=== PATIENT | female | born 1980 | race African-American/Black ===

== ENCOUNTER 2024-02-19 17:08 | Inpatient (IN) | payer OTHER, SELFPAY ==
[2024-02-19 17:53] VITALS: BP 136/100; PULSE 82; RESP 16; TEMP 36.3; O2SAT 93
[2024-02-19 18:08] VITALS: BMI 21.6
[2024-02-19 19:11] VITALS: BP 145/98; PULSE 84; RESP 18; TEMP 36.4; O2SAT 99
--- NOTE | 2024-02-19 19:13 | PC.NURSE ---
Pt arrived to unit at 1750 on a CV from [facility]. Pt cooperative with safety/skin check and VS check. Admission orders obtained by covering provider Dr. Sher. Pt oriented to unit, provided with toiletries, fluids, and dinner. Pt noted to have brought medications from home, which were inventoried and sent to pharmacy for storage. Medication reconciliation completed with [facility] and [facility]. Covering provider Dr. Sher made aware that medication reconciliation completed. Admission to be completed by oncoming assigned nurse.
[2024-02-19 19:36] LABS: Alanine Aminotransferase 19 U/L (0-31); Alkaline Phosphatase 53 U/L (39-117); Anion Gap 12 (12-20); Aspartate Amino Transferase 26 U/L (5-31); Bilirubin Total 0.6 mg/dL (0.0-1.0); Blood Urea Nitrogen 8 mg/dL (9-16); Calcium 9.7 mg/dL (8.4-10.2); Carbon Dioxide 28 mmol/L (22-29); Chloride 104 mmol/L (96-108); Creatinine Clr Calc Pharmacy 78.3; Estimated Glomerular Filt Rate > 60; Glucose Random 113 mg/dL (60-115); Potassium 4.1 mmol/L (3.3-5.1); Sodium 140 mmol/L (135-145); Total Protein 7.7 g/dL (6.5-8.0)
[2024-02-19 20:00] VITALS: BP 139/94; PULSE 69; RESP 16; TEMP 36.5; O2SAT 100
--- NOTE | 2024-02-19 20:31 | PHA.MEDREC ---
Pharmacy Consult ? Medication Reconciliation Pharmacy has reviewed the medication reconciliation completed by nursing.
[2024-02-19] MEDS: traMADoL HCL 50 MG TABLET PO (23:45)
[2024-02-19] MEDS: Baclofen 10 MG TABLET PO (23:45)
[2024-02-19] MEDS: QUEtiapine Fumarate 25 MG TABLET PO (23:45)
[2024-02-19 23:46] VITALS: BP 139/94
[2024-02-19] MEDS: traZODone HCL 50 MG TABLET PO (23:46)
[2024-02-19] MEDS: Prazosin HCL 1 MG CAPSULE PO (23:46)
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
[2024-02-20 08:00] VITALS: BP 123/85; PULSE 88; RESP 16; TEMP 36.4; O2SAT 98
[2024-02-20 08:23] LABS: Estimated Average Glucose 100 mg/dL; Hemoglobin A1C 118.3359 umol/L; Hemoglobin A1c % 5.1 % (<6.0); Total Hemoglobin (HGBA1C) 3624.3447 umol/L
[2024-02-20] MEDS: Omeprazole 20 MG CAPSULE.DR PO (08:30)
[2024-02-20] MEDS: Apixaban 2.5 MG TABLET PO ×2 (08:31→20:34)
[2024-02-20] MEDS: Baclofen 10 MG TABLET PO ×3 (08:33→20:34)
[2024-02-20] MEDS: Prazosin HCL 1 MG CAPSULE PO ×2 (08:33→20:34)
[2024-02-20] MEDS: amLODIPine Besylate 5 MG TABLET PO (08:33)
[2024-02-20] MEDS: Gabapentin 600 MG TABLET PO ×2 (08:33→20:34)
[2024-02-20] MEDS: QUEtiapine Fumarate 25 MG TABLET PO ×2 (08:34→20:34)
[2024-02-20 08:37] LABS: Cholesterol 176 mg/dL (<200); HDL Cholesterol 60 mg/dL (>40); LDL Cholesterol Calculated 101 mg/dL (<100); Magnesium 1.7 mg/dL (1.6-2.6); Triglycerides 78 mg/dL (<150)
[2024-02-20 09:00] LABS: TSH reflex Free T4 1.67 uIU/mL (0.32-4.0)
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
[2024-02-20 11:50] VITALS: BP 133/77; PULSE 74; RESP 14; TEMP 36.6; O2SAT 98
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
[2024-02-20 15:06] VITALS: BP 154/101
[2024-02-20] MEDS: cloNIDine HCL 0.1 MG TABLET PO (15:06)
[2024-02-20 20:30] VITALS: BP 106/69; PULSE 74; RESP 18; TEMP 37.1; O2SAT 98
[2024-02-20] MEDS: Lithium Carbonate ER 300 MG TABLET.ER 600 MG PO (20:34)
[2024-02-21] MEDS: Omeprazole 20 MG CAPSULE.DR PO (07:26)
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
[2024-02-21 10:07] VITALS: BP 117/84
[2024-02-21] MEDS: amLODIPine Besylate 5 MG TABLET PO (10:07)
[2024-02-21] MEDS: Baclofen 10 MG TABLET PO ×3 (10:07→20:38)
[2024-02-21] MEDS: QUEtiapine Fumarate 25 MG TABLET PO ×2 (10:07→21:53)
[2024-02-21] MEDS: Prazosin HCL 1 MG CAPSULE PO ×2 (10:07→21:53)
[2024-02-21] MEDS: Gabapentin 600 MG TABLET PO ×2 (10:07→21:53)
[2024-02-21] MEDS: Apixaban 2.5 MG TABLET PO ×2 (10:07→21:53)
[2024-02-21] MEDS: hydrOXYzine HCL 25 MG TABLET PO (15:03)
[2024-02-21] MEDS: traMADoL HCL 50 MG TABLET PO ×2 (16:03→21:52)
[2024-02-21 19:49] VITALS: BP 116/65; PULSE 77; RESP 15; TEMP 36.6; O2SAT 99
[2024-02-21] MEDS: cloNIDine HCL 0.1 MG TABLET PO (20:39)
[2024-02-21] MEDS: Lithium Carbonate ER 300 MG TABLET.ER 600 MG PO (21:52)
[2024-02-22] MEDS: traZODone HCL 50 MG TABLET PO (02:16)
[2024-02-22] MEDS: hydrOXYzine HCL 25 MG TABLET PO (02:16)
[2024-02-22] MEDS: Omeprazole 20 MG CAPSULE.DR PO (07:03)
[2024-02-22 08:08] VITALS: BP 129/82; PULSE 74; RESP 16; TEMP 36.3; O2SAT 99
[2024-02-22] MEDS: Apixaban 2.5 MG TABLET PO ×2 (08:16→20:18)
[2024-02-22] MEDS: QUEtiapine Fumarate 25 MG TABLET PO ×2 (08:16→20:18)
[2024-02-22] MEDS: Prazosin HCL 1 MG CAPSULE PO ×2 (08:16→20:19)
[2024-02-22] MEDS: amLODIPine Besylate 5 MG TABLET PO (08:16)
[2024-02-22] MEDS: Baclofen 10 MG TABLET PO ×3 (08:16→20:19)
[2024-02-22] MEDS: Gabapentin 600 MG TABLET PO ×2 (08:16→20:19)
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
[2024-02-22] MEDS: ALPRAZolam 0.5 MG TABLET PO (16:06)
[2024-02-22 16:07] VITALS: BP 126/78
[2024-02-22] MEDS: cloNIDine HCL 0.1 MG TABLET PO (16:07)
[2024-02-22 20:00] VITALS: BP 127/74; PULSE 74; TEMP 36.4; O2SAT 96
[2024-02-22] MEDS: Lithium Carbonate ER 300 MG TABLET.ER 600 MG PO (20:18)
[2024-02-22] MEDS: traMADoL HCL 50 MG TABLET PO (20:18)
[2024-02-22 20:19] VITALS: BP 127/74
[2024-02-23] MEDS: traMADoL HCL 50 MG TABLET PO ×3 (04:18→21:21)
[2024-02-23] MEDS: Omeprazole 20 MG CAPSULE.DR PO (06:32)
[2024-02-23 08:00] VITALS: BP 117/73; PULSE 75; RESP 16; TEMP 36.3; O2SAT 97
[2024-02-23] MEDS: QUEtiapine Fumarate 25 MG TABLET PO (08:35)
[2024-02-23] MEDS: Prazosin HCL 1 MG CAPSULE PO ×2 (08:35→21:19)
[2024-02-23] MEDS: amLODIPine Besylate 5 MG TABLET PO (08:35)
[2024-02-23] MEDS: Apixaban 2.5 MG TABLET PO ×2 (08:35→21:16)
[2024-02-23] MEDS: Gabapentin 600 MG TABLET PO ×2 (08:35→21:24)
[2024-02-23] MEDS: Baclofen 10 MG TABLET PO (08:35)
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
[2024-02-23] MEDS: hydrOXYzine HCL 25 MG TABLET PO ×2 (08:54→16:45)
[2024-02-23] MEDS: ALPRAZolam 0.5 MG TABLET PO (14:39)
[2024-02-23 20:00] VITALS: BP 121/73; PULSE 69; RESP 16; TEMP 36.3; O2SAT 100
[2024-02-23] MEDS: Lithium Carbonate ER 300 MG TABLET.ER 600 MG PO (21:16)
[2024-02-23] MEDS: Baclofen 10 MG TABLET 5 MG PO (21:17)
[2024-02-23] MEDS: traZODone HCL 50 MG TABLET PO (21:20)
[2024-02-24] MEDS: ALPRAZolam 0.5 MG TABLET PO (01:29)
[2024-02-24] MEDS: traZODone HCL 50 MG TABLET PO ×2 (01:30→22:30)
[2024-02-24] MEDS: Omeprazole 20 MG CAPSULE.DR PO (06:51)
[2024-02-24 08:00] VITALS: BP 112/63; PULSE 71; RESP 16; TEMP 36.2; O2SAT 99
[2024-02-24] MEDS: Apixaban 2.5 MG TABLET PO ×2 (08:29→20:17)
[2024-02-24] MEDS: traMADoL HCL 50 MG TABLET PO ×3 (08:29→20:17)
[2024-02-24] MEDS: amLODIPine Besylate 5 MG TABLET PO (08:29)
[2024-02-24] MEDS: Gabapentin 600 MG TABLET PO ×2 (08:29→20:18)
[2024-02-24] MEDS: Baclofen 10 MG TABLET 5 MG PO ×2 (08:30→20:18)
[2024-02-24] MEDS: Prazosin HCL 1 MG CAPSULE PO ×2 (08:31→22:28)
[2024-02-24 12:13] VITALS: BP 103/66
[2024-02-24] MEDS: cloNIDine HCL 0.1 MG TABLET PO ×2 (12:13→22:27)
[2024-02-24] MEDS: Acetaminophen 325 MG TABLET 650 MG PO ×2 (15:01→21:01)
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
[2024-02-24 20:00] VITALS: BP 109/66; PULSE 72; RESP 16; TEMP 36.4; O2SAT 99
[2024-02-24] MEDS: Lithium Carbonate ER 300 MG TABLET.ER 600 MG PO (20:18)
[2024-02-24 22:27] VITALS: BP 109/66
[2024-02-24 22:28] VITALS: BP 109/66
[2024-02-24] MEDS: hydrOXYzine HCL 25 MG TABLET PO (22:28)
[2024-02-24] MEDS: Melatonin 3 MG TABLET 9 MG PO (22:31)
[2024-02-25 08:00] VITALS: BP 116/80; PULSE 74; RESP 18; TEMP 36.9
[2024-02-25 08:41] LABS: Lithium 0.68 mmol/L (0.60-1.20)
[2024-02-25 08:53] LABS: Blood Urea Nitrogen 11 mg/dL (9-16); Creatinine Clr Calc Pharmacy 90.2; Estimated Glomerular Filt Rate > 60
[2024-02-25] MEDS: amLODIPine Besylate 5 MG TABLET PO (09:03)
[2024-02-25] MEDS: Omeprazole 20 MG CAPSULE.DR PO (09:03)
[2024-02-25] MEDS: cloNIDine HCL 0.1 MG TABLET PO ×2 (09:03→18:20)
[2024-02-25] MEDS: Gabapentin 600 MG TABLET PO ×2 (09:03→21:03)
[2024-02-25] MEDS: Prazosin HCL 1 MG CAPSULE PO ×2 (09:04→21:03)
[2024-02-25] MEDS: Apixaban 2.5 MG TABLET PO ×2 (09:04→21:03)
[2024-02-25] MEDS: Acetaminophen 325 MG TABLET 650 MG PO ×2 (09:04→18:20)
[2024-02-25] MEDS: Baclofen 10 MG TABLET 5 MG PO ×2 (09:04→21:03)
[2024-02-25 09:09] LABS: TSH reflex Free T4 2.69 uIU/mL (0.32-4.0)
[2024-02-25] MEDS: hydrOXYzine HCL 25 MG TABLET PO (10:41)
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
[2024-02-25] MEDS: ALPRAZolam 0.5 MG TABLET PO (14:39)
[2024-02-25] MEDS: traMADoL HCL 50 MG TABLET PO ×2 (14:39→21:02)
[2024-02-25 18:20] VITALS: BP 125/76
[2024-02-25 20:00] VITALS: BP 109/58; PULSE 77; TEMP 36.4; O2SAT 98
[2024-02-25] MEDS: traZODone HCL 50 MG TABLET PO (21:03)
[2024-02-25] MEDS: Lithium Carbonate ER 300 MG TABLET.ER 600 MG PO (21:03)
[2024-02-26] MEDS: traMADoL HCL 50 MG TABLET PO ×2 (06:28→15:24)
[2024-02-26] MEDS: Omeprazole 20 MG CAPSULE.DR PO (07:44)
[2024-02-26 08:34] VITALS: BP 98/64; PULSE 69; RESP 18; TEMP 36.8; O2SAT 100
[2024-02-26] MEDS: Gabapentin 600 MG TABLET PO ×2 (08:52→20:46)
[2024-02-26] MEDS: Prazosin HCL 1 MG CAPSULE PO ×2 (08:52→20:46)
[2024-02-26] MEDS: Apixaban 2.5 MG TABLET PO ×2 (08:52→20:46)
[2024-02-26] MEDS: amLODIPine Besylate 5 MG TABLET PO (08:52)
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
[2024-02-26 15:24] VITALS: BP 133/91
[2024-02-26] MEDS: cloNIDine HCL 0.1 MG TABLET PO (15:24)
[2024-02-26] MEDS: ALPRAZolam 0.5 MG TABLET PO (15:25)
[2024-02-26 19:45] VITALS: BP 123/72; PULSE 70; TEMP 36.4; O2SAT 99
[2024-02-26] MEDS: Lithium Carbonate ER 300 MG TABLET.ER 600 MG PO (20:46)
[2024-02-26] MEDS: Acetaminophen 325 MG TABLET 650 MG PO (21:21)
[2024-02-26] MEDS: hydrOXYzine HCL 25 MG TABLET PO (22:34)
[2024-02-26] MEDS: traZODone HCL 50 MG TABLET PO (22:35)
[2024-02-27 08:00] VITALS: BP 138/84; PULSE 80; TEMP 36.6; O2SAT 99
[2024-02-27 08:51] VITALS: BP 138/84
[2024-02-27] MEDS: Prazosin HCL 1 MG CAPSULE PO ×2 (08:51→20:53)
[2024-02-27] MEDS: Apixaban 2.5 MG TABLET PO ×2 (08:52→20:53)
[2024-02-27] MEDS: Omeprazole 20 MG CAPSULE.DR PO (08:52)
[2024-02-27] MEDS: Gabapentin 600 MG TABLET PO ×2 (08:52→20:51)
[2024-02-27 08:53] VITALS: BP 138/84
[2024-02-27] MEDS: amLODIPine Besylate 5 MG TABLET PO (08:53)
[2024-02-27] MEDS: traMADoL HCL 50 MG TABLET PO ×2 (14:42→22:00)
[2024-02-27] MEDS: ALPRAZolam 0.5 MG TABLET PO ×2 (14:42→18:04)
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
[2024-02-27] MEDS: risperiDONE 0.5 MG TABLET PO (18:00)
[2024-02-27 19:40] VITALS: BP 106/74; PULSE 85; TEMP 36.6; O2SAT 100
[2024-02-27] MEDS: Acetaminophen 325 MG TABLET 650 MG PO (20:51)
[2024-02-27] MEDS: Lithium Carbonate ER 300 MG TABLET.ER 600 MG PO (20:51)
[2024-02-27 21:58] VITALS: BP 136/83
[2024-02-27] MEDS: cloNIDine HCL 0.1 MG TABLET PO (21:58)
[2024-02-27] MEDS: traZODone HCL 50 MG TABLET PO (21:58)
[2024-02-28 07:57] VITALS: BP 116/78; PULSE 81; RESP 16; TEMP 36.4; O2SAT 99
[2024-02-28] MEDS: Gabapentin 600 MG TABLET PO ×2 (08:15→20:53)
[2024-02-28] MEDS: Omeprazole 20 MG CAPSULE.DR PO (08:16)
[2024-02-28] MEDS: amLODIPine Besylate 5 MG TABLET PO (08:16)
[2024-02-28] MEDS: Apixaban 2.5 MG TABLET PO ×2 (08:16→20:54)
[2024-02-28] MEDS: risperiDONE 0.5 MG TABLET PO ×2 (08:16→14:39)
[2024-02-28 09:07] VITALS: BP 116/78
[2024-02-28] MEDS: Prazosin HCL 1 MG CAPSULE PO ×2 (09:07→20:51)
[2024-02-28 12:09] VITALS: BP 117/82
[2024-02-28] MEDS: cloNIDine HCL 0.1 MG TABLET PO ×2 (12:09→17:29)
[2024-02-28] MEDS: traMADoL HCL 50 MG TABLET PO (12:28)
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
[2024-02-28 17:29] VITALS: BP 123/73; PULSE 88
[2024-02-28 20:00] VITALS: BP 147/82; PULSE 90; RESP 16; TEMP 37; O2SAT 100
[2024-02-28 20:51] VITALS: BP 147/82
[2024-02-28] MEDS: Lithium Carbonate ER 300 MG TABLET.ER 600 MG PO (20:54)
[2024-02-28] MEDS: traZODone HCL 50 MG TABLET PO (22:57)
[2024-02-28] MEDS: hydrOXYzine HCL 25 MG TABLET PO (22:57)
[2024-02-29 07:00] VITALS: BMI 21.9
[2024-02-29 08:23] VITALS: BP 135/86; PULSE 80; RESP 18; TEMP 36.4; O2SAT 98
[2024-02-29] MEDS: Gabapentin 600 MG TABLET PO ×2 (08:55→21:03)
[2024-02-29] MEDS: Omeprazole 20 MG CAPSULE.DR PO (08:55)
[2024-02-29] MEDS: Prazosin HCL 1 MG CAPSULE PO ×2 (08:55→23:11)
[2024-02-29] MEDS: risperiDONE 0.5 MG TABLET PO ×2 (08:55→13:18)
[2024-02-29] MEDS: Apixaban 2.5 MG TABLET PO ×2 (08:55→21:05)
[2024-02-29] MEDS: amLODIPine Besylate 5 MG TABLET PO (08:55)
[2024-02-29] MEDS: Acetaminophen 325 MG TABLET 650 MG PO ×2 (11:01→18:55)
[2024-02-29] MEDS: traMADoL HCL 50 MG TABLET PO ×2 (11:01→18:56)
[2024-02-29] MEDS: hydrOXYzine HCL 25 MG TABLET PO ×2 (13:20→21:26)
[2024-02-29 15:56] VITALS: BP 154/90
[2024-02-29] MEDS: cloNIDine HCL 0.1 MG TABLET PO ×2 (15:56→21:19)
[2024-02-29 20:00] VITALS: BP 120/82; PULSE 78; TEMP 36.6; O2SAT 98
[2024-02-29] MEDS: Lithium Carbonate ER 300 MG TABLET.ER 600 MG PO (21:04)
[2024-02-29 21:19] VITALS: BP 120/82
[2024-02-29 23:05] VITALS: BP 113/76; PULSE 80
[2024-02-29 23:11] VITALS: BP 113/76
[2024-02-29] MEDS: traZODone HCL 50 MG TABLET PO (23:11)
[2024-03-01] MEDS: hydrOXYzine HCL 25 MG TABLET PO ×3 (04:51→17:35)
[2024-03-01] MEDS: Omeprazole 20 MG CAPSULE.DR PO (07:10)
[2024-03-01 08:00] VITALS: BP 129/92; PULSE 83; RESP 16; TEMP 36.4; O2SAT 96
[2024-03-01] MEDS: Prazosin HCL 1 MG CAPSULE PO ×2 (08:58→23:03)
[2024-03-01] MEDS: Apixaban 2.5 MG TABLET PO ×2 (08:58→20:33)
[2024-03-01] MEDS: Gabapentin 600 MG TABLET PO ×2 (08:58→20:33)
[2024-03-01] MEDS: risperiDONE 0.5 MG TABLET PO ×2 (08:58→13:20)
[2024-03-01] MEDS: amLODIPine Besylate 5 MG TABLET PO (08:58)
[2024-03-01] MEDS: traMADoL HCL 50 MG TABLET PO ×2 (09:02→18:01)
[2024-03-01] MEDS: cloNIDine HCL 0.1 MG TABLET PO ×4 (09:02→23:03)
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
[2024-03-01] MEDS: Lidocaine 4 % Patch ADH..PATCH 1 PATCH TRANSDERMA ×2 (13:25→18:01)
[2024-03-01 13:29] VITALS: BP 111/74
[2024-03-01 17:35] VITALS: BP 117/70
[2024-03-01] MEDS: ALPRAZolam 0.5 MG TABLET PO (18:01)
[2024-03-01 20:00] VITALS: BP 109/56; PULSE 80; RESP 15; TEMP 36.5; O2SAT 100
[2024-03-01] MEDS: Lithium Carbonate ER 300 MG TABLET.ER 600 MG PO (20:32)
[2024-03-01] MEDS: traZODone HCL 50 MG TABLET PO (23:03)
[2024-03-01] MEDS: Melatonin 3 MG TABLET 9 MG PO (23:04)
[2024-03-02] MEDS: Omeprazole 20 MG CAPSULE.DR PO (06:55)
[2024-03-02 08:00] VITALS: BP 106/74; PULSE 99; RESP 18; TEMP 36.4; O2SAT 100
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
[2024-03-02] MEDS: risperiDONE 0.5 MG TABLET PO ×2 (09:09→13:38)
[2024-03-02] MEDS: amLODIPine Besylate 5 MG TABLET PO (09:09)
[2024-03-02] MEDS: Gabapentin 600 MG TABLET PO ×2 (09:09→20:21)
[2024-03-02] MEDS: Prazosin HCL 1 MG CAPSULE PO ×2 (09:09→22:22)
[2024-03-02] MEDS: Apixaban 2.5 MG TABLET PO ×2 (09:09→20:21)
[2024-03-02] MEDS: Lidocaine 4 % Patch ADH..PATCH 1 PATCH TRANSDERMA (09:10)
[2024-03-02] MEDS: ALPRAZolam 0.5 MG TABLET PO (12:02)
[2024-03-02] MEDS: traMADoL HCL 50 MG TABLET PO (12:03)
[2024-03-02] MEDS: Acamprosate Calcium 333 MG TABLET.DR PO ×2 (14:13→20:21)
[2024-03-02 20:00] VITALS: BP 137/81; PULSE 83; RESP 15; TEMP 36.9; O2SAT 99
[2024-03-02] MEDS: Lithium Carbonate ER 300 MG TABLET.ER 600 MG PO (20:21)
[2024-03-02] MEDS: traZODone HCL 50 MG TABLET PO ×2 (22:22→22:23)
[2024-03-02] MEDS: Melatonin 3 MG TABLET 9 MG PO (22:22)
[2024-03-03] MEDS: Omeprazole 20 MG CAPSULE.DR PO (07:09)
[2024-03-03 08:00] VITALS: BP 141/83; PULSE 106; RESP 18; TEMP 36.4; O2SAT 99
[2024-03-03] MEDS: Apixaban 2.5 MG TABLET PO ×2 (08:35→20:21)
[2024-03-03] MEDS: amLODIPine Besylate 5 MG TABLET PO (08:35)
[2024-03-03] MEDS: Prazosin HCL 1 MG CAPSULE PO ×2 (08:35→20:20)
[2024-03-03] MEDS: Acamprosate Calcium 333 MG TABLET.DR PO ×3 (08:35→20:19)
[2024-03-03] MEDS: Gabapentin 600 MG TABLET PO ×2 (08:35→20:21)
[2024-03-03] MEDS: traMADoL HCL 50 MG TABLET PO ×3 (08:36→23:10)
[2024-03-03] MEDS: risperiDONE 0.5 MG TABLET PO ×2 (08:36→13:47)
[2024-03-03] MEDS: Lidocaine 4 % Patch ADH..PATCH 1 PATCH TRANSDERMA (08:38)
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
[2024-03-03 19:52] VITALS: BP 123/80; PULSE 98; RESP 18; TEMP 37.1; O2SAT 99
[2024-03-03] MEDS: Lithium Carbonate ER 300 MG TABLET.ER 600 MG PO (20:21)
[2024-03-03] MEDS: ALPRAZolam 0.5 MG TABLET PO (20:37)
[2024-03-03] MEDS: Melatonin 3 MG TABLET 9 MG PO (23:11)
[2024-03-03] MEDS: traZODone HCL 50 MG TABLET PO (23:12)
[2024-03-03] MEDS: hydrOXYzine HCL 25 MG TABLET PO (23:12)
[2024-03-04] MEDS: Omeprazole 20 MG CAPSULE.DR PO (06:41)
[2024-03-04] MEDS: ALPRAZolam 0.5 MG TABLET PO ×2 (07:06→12:26)
[2024-03-04 08:00] VITALS: BP 123/72; PULSE 88; RESP 18; TEMP 36.2; O2SAT 100
[2024-03-04] MEDS: Acetaminophen 325 MG TABLET 650 MG PO (08:34)
[2024-03-04] MEDS: Gabapentin 600 MG TABLET PO (08:35)
[2024-03-04] MEDS: Acamprosate Calcium 333 MG TABLET.DR PO (08:35)
[2024-03-04] MEDS: risperiDONE 0.5 MG TABLET PO (08:35)
[2024-03-04] MEDS: hydrOXYzine HCL 25 MG TABLET PO (08:35)
[2024-03-04] MEDS: Apixaban 2.5 MG TABLET PO (08:35)
[2024-03-04] MEDS: Prazosin HCL 1 MG CAPSULE PO (08:35)
[2024-03-04] MEDS: amLODIPine Besylate 5 MG TABLET PO (08:35)
[2024-03-04] MEDS: traMADoL HCL 50 MG TABLET PO (08:35)
[2024-03-04] MEDS: Lidocaine 4 % Patch ADH..PATCH 1 PATCH TRANSDERMA (08:38)
[2024-03-04] MEDS: Cyclobenzaprine HCl 10 MG TABLET PO (09:44)
[2024-03-04 09:52] VITALS: BP 140/74
[2024-03-04] MEDS: cloNIDine HCL 0.1 MG TABLET PO (09:52)
--- NOTE | 2024-03-04 11:42 | P.DS_ITS ---
DS: Providers Provider Date of Service: 03/04/24 Date of admission: 02/19/24 17:08 Date of discharge: 03/04/24 Primary care physician: Unknown Physician Consults: 02/19/24 17:56 Consult to Hospitalist Routine Comment: Consulting Provider: [facility] Hospitalists Reason For Exam: admission physical DS: Diagnosis Discharge Diagnosis (1) Bipolar I disorder: Status: Acute (2) Alcohol use disorder: Status: Acute (3) PTSD (post-traumatic stress disorder): Status: Acute DS: Medications Discharge Medications Home Medications: Previous Rx's ?Medication ?Instructions ?Recorded acamprosate 333 mg tablet,delayed 333 mg PO TID 30 days #90 tabs 03/04/24 release alprazolam 0.5 mg tablet 0.5 mg PO TID PRN Anxiety 30 days 03/04/24 #30 tabs amlodipine 5 mg tablet 5 mg PO DAILY 30 days #30 tabs 03/04/24 apixaban 2.5 mg tablet (Eliquis) 2.5 mg PO BID 30 days #60 tabs 03/04/24 clonidine HCl 0.1 mg tablet 0.1 mg PO Q4H PRN anxiety 30 days 03/04/24 #90 tabs cyclobenzaprine 10 mg tablet 10 mg PO TID PRN muscle 03/04/24 spasm/tightness 30 days #90 tabs gabapentin 600 mg tablet 600 mg PO BID 30 days #60 tabs 03/04/24 hydroxyzine HCl 25 mg tablet 25 mg PO Q6H PRN Anxiety 30 days 03/04/24 #90 tabs lidocaine 4 % topical patch 1 patch transdermal DAILY PRN 03/04/24 (Lidocaine Pain Relief) lower back pain 30 days #30 ea lithium carbonate 300 mg 600 mg (2 x 300 mg) PO BEDTIME 30 03/04/24 tablet,extended release days #60 tabs melatonin 10 mg tablet 10 mg PO BEDTIME PRN sleep 30 days 03/04/24 #30 tabs pantoprazole 40 mg tablet,delayed 40 mg PO DAILY@0630 30 days #30 03/04/24 release (Protonix) tabs prazosin 1 mg capsule 1 mg PO BID 30 days #60 caps 03/04/24 risperidone 0.5 mg tablet 0.5 mg PO BID@0900,1400 30 days 03/04/24 #60 tabs tramadol 50 mg tablet 50 mg PO Q6H PRN Pain, Moderate 30 03/04/24 days #30 tabs trazodone 50 mg tablet 50 mg PO BEDTIME 30 days #30 tabs 03/04/24 DS: Summary Time Spent with Patient Time attestation: Total time managing care of this patient today ____ minutes. Discharge Plan Discharge Anticipated Discharge Date/Time: 03/04/24 12:42 Patient Disposition: [facility] Discharge Diagnosis: bipolar I disorder, recurrent, moderate, most recent episode depressed, in full remission Referrals: [facility] [Other] - 1 Week (Programs offer adults in [facility] with substance use disorders and/or co- occurring substance use and mental health diagnoses access to a continuum of housing and support options, including a dedicated full-time bioinformatics support specialist. Please call the provided number to check to see about availability for entering the program ) [facility] [Other] - 1 Week (The confidential [facility] operates Monday-Monday, 9AM to 5PM. Helpline: [phone], Office: [phone] Services include a confidential helpline, counseling, safety planning, support groups, legal and immigration assistance, referrals, and assistance with housing and economic issues. ) [facility] [Other] - 1 Week ([facility] helps to find emergency detention, get 1:1 advocacy, build personal safety plan and join support groups ) [facility] Int[facility] [Other] - 03/07/24 11:00 am (Your appointment is with Kristine Faye and is in person ) [facility]Medication Provider [Other] - 03/27/24 1:00 pm (Your appointment is with Raymond Krishnamurthy and is in person) Angela Garcia MD [Physician] - 03/29/24 2:00 pm (In office appointment ) Discharge Medications: New acamprosate 333 mg Tablet,Delayed Release (Dr/Ec) 333 mg PO TID 30 Days Qty: 90 1RF cyclobenzaprine 10 mg Tablet 10 mg PO TID PRN (Reason: muscle spasm/tightness) 30 Days Qty: 90 1RF clonidine HCl 0.1 mg Tablet 0.1 mg PO Q4H PRN (Reason: anxiety) 30 Days Qty: 90 1RF Protocol: Hold for SBP< HOLD for SBP < : 90 gabapentin 600 mg Tablet 600 mg PO BID 30 Days Qty: 60 1RF hydroxyzine HCl 25 mg Tablet 25 mg PO Q6H PRN (Reason: Anxiety) 30 Days Qty: 90 1RF lithium carbonate 300 mg Tablet Extended Release 600 mg PO BEDTIME 30 Days Qty: 60 1RF risperidone 0.5 mg Tablet 0.5 mg PO BID@0900,1400 30 Days Qty: 60 0RF trazodone 50 mg Tablet 50 mg PO BEDTIME 30 Days Qty: 30 1RF melatonin 10 mg tablet 10 mg PO BEDTIME PRN (Reason: sleep) 30 Days Qty: 30 0RF lidocaine [Lidocaine Pain Relief] 4 % Adhesive Patch,Medicated 1 patch transdermal DAILY PRN (Reason: lower back pain) 30 Days Qty: 30 1RF Protocol: Apply to: Apply to: lower back Rx Instructions: apply to lower back daily as needed Continued amlodipine 5 mg Tablet 5 mg PO DAILY 30 Days Qty: 30 0RF tramadol 50 mg Tablet 50 mg PO Q6H PRN (Reason: Pain, Moderate) 30 Days Qty: 30 0RF alprazolam 0.5 mg Tablet 0.5 mg PO TID PRN (Reason: Anxiety) 30 Days Qty: 30 0RF pantoprazole [Protonix] 40 mg Tablet,Delayed Release (Dr/Ec) 40 mg PO DAILY@0630 30 Days Qty: 30 0RF Eliquis 2.5 mg Tablet 2.5 mg PO BID 30 Days Qty: 60 0RF Changed prazosin 1 mg Capsule 1 mg PO BID 30 Days Qty: 60 1RF Discontinued quetiapine [Seroquel XR] 50 mg Tablet Extended Release 24 Hr 50 mg PO BEDTIME baclofen 10 mg Tablet 10 mg PO TID PRN (Reason: Pain) Patient Comments: 30 day supply last filled 01/24/24. gabapentin 300 mg Tablet 600 mg PO BID Rx Instructions: 30 day supply last filled 01/19/24 melatonin 3 mg Tablet 9 mg PO BEDTIME PRN (Reason: Insomnia) Patient Comments: 30 day supply last filled 01/21/24 Rx Instructions: take 3 tablets at bedtime as needed Discharge Orders: Discharge Order (Routine); Ordered 03/04/24 Ordered By: Zoran Sher Diet: Regular diet Activity on Discharge: As tolerated Stand Alone Forms: Patient Portal Discharge page Print Language: Polish Care Plan Goals: Maintain mood and safe behaviors Take medications as prescribed Continue to pursue sobriety Practice coping skills Continue with outpatient providers and reach out to them as needed Health Concerns: Mood stability and behaviors Sobriety Plan of Treatment: Follow up with your PCP, psychiatric provider and other outpatient providers regarding above concerns Take medications as prescribed Assessment: Risk assessment at time of discharge:? Patient was interviewed prior to discharge and found to be fully oriented and without any SI or HI. Patient has improved insight and judgment and wants to continue treatment. Patient is not in imminent risk of harm to self or others and has a safety plan that includes presenting to the closest ER or calling 911 if feeling unsafe.? Patient has been observed closely by nursing and unit staff throughout admission; patient has not engaged in any behaviors that suggest dangerousness to self or others and has demonstrated appropriate behaviors and impulse control
== END 2024-03-04 12:40 | disposition home or self-care (01) | DRG 753 ==
PROVIDERS: Admitting Provider Psychiatry & Neurology Psychiatry; Visit Provider Psychiatry & Neurology Psychiatry
DX: F31.9 Bipolar disorder, unspecified (principal); F43.10 Post-traumatic stress disorder, unspecified; G89.29 Other chronic pain; I10 Essential (primary) hypertension; Z91.410 Personal history of adult physical and sexual abuse; Z59.02 Unsheltered homelessness; Z79.01 Long term (current) use of anticoagulants; Z79.899 Other long term (current) drug therapy
CPT/HCPCS: 36415; 80053; 80061; 80178; 82565; 83036; 83735; 84443; 84520

== ENCOUNTER → 2024-02-19 17:08 | Outpatient (BNV) | payer OTHER, SELFPAY | PROVIDERS: Admitting Provider Psychiatry & Neurology Psychiatry; Visit Provider Student in an Organized Health Care Education/Training Program | DX: Z02.2 Encounter for examination for admission to residential institution (principal) | CPT/HCPCS: 99429 ==

== ENCOUNTER → 2024-02-19 17:08 | Outpatient (BNV) | payer OTHER, SELFPAY | PROVIDERS: Admitting Provider Psychiatry & Neurology Psychiatry; Visit Provider Social Worker | DX: F31.4 Bipolar disorder, current episode depressed, severe, without psychotic features (principal); F10.90 Alcohol use, unspecified, uncomplicated; F43.11 Post-traumatic stress disorder, acute | CPT/HCPCS: 99231; 99232 ==